=== PATIENT | male | born 1990 | race Caucasian/White ===

== ENCOUNTER → 2019-04-20 15:27 | Outpatient (CLI) | payer MEDICARE, MEDICAID, SELFPAY ==
[2019-04-20 17:23] LABS: BUN Creatinine Ratio 12.9 (6-22); Blood Urea Nitrogen 9 mg/dL (9-20); Estimated Glomerular Filt Rate > 60.0 mL/min (>60)
== END ==
PROVIDERS: PCP Internal Medicine
DX: I10 Essential (primary) hypertension (principal)
CPT/HCPCS: 36415; 82565; 84520

== ENCOUNTER → 2019-12-21 08:58 | Outpatient (CLI) | payer MEDICARE, MEDICAID, SELFPAY ==
[2019-12-24 10:18] LABS: Lamotrigine Lamictal 5.3 mcg/mL (4.0-18.0)
== END ==
PROVIDERS: PCP Internal Medicine; Referring Provider Psychiatry & Neurology Neurology; Visit Provider Psychiatry & Neurology Neurology
DX: G40.909 Epilepsy, unspecified, not intractable, without status epilepticus (principal)
CPT/HCPCS: 36415; 80175; 80183

== ENCOUNTER → 2020-01-18 10:54 | Outpatient (CLI) | payer MEDICARE, MEDICAID, SELFPAY ==
--- NOTE | 2020-01-18 10:59 | DI.MRI.S_ITS ---
PROCEDURE: MR HEAD/BRAIN WO/W CON INDICATIONS: Abnormal findings on diagnostic imaging of skull. 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 TECHNIQUE: Noncontrast axial T1 spin echo, axial T2 fast spin echo, sagittal and axial FLAIR, coronal T2 fast spin echo, axial gradient echo, axial diffusion and ADC through the brain. After the administration of contrast, axial and coronal 3D VIBE or T1 spin echo with fat saturation through the brain. COMPARISON: Outside Facility, RG, MRI HEAD W/WO CONTRAST, 05/01/2019, 10:30. Outside Facility, RG, MRI HEAD W/WO CONTRAST, 04/13/2017, 15:18. FINDINGS: Image quality: Excellent. CSF Spaces: Basal cisterns are patent. No extra-axial fluid collections. Ventricles are stable in size and shape with encephalomalacia asymmetrically enlarging the right lateral ventricle when compared to that on the left a mild degree, associated with prior treatment for astrocytoma resection right frontal brain parenchyma, near the frontoparietal junction. Brain: No midline shift. No new intracranial bleeds or new masses. The prior medial right thalamic area of cystic and solid mass is again seen, mildly distorting the ependymal border adjacent to the anterior margin of the third ventricle. The mass effect in this area has slowly enlarged over time, measuring 2.2 x 1.1 cm in maximal AP and transverse dimensions in April of last year and currently measures 3.0 x 1.6 cm. Minimal associated abnormal enhancement. The brainstem appears normal. Diffusion-weighted images demonstrate no acute ischemic insults. No chronic ischemic insults. Normal intravascular flow voids are present. Skull and face: Calvarial marrow is normal in signal. Orbits appear normal. Sinuses: Sinuses and mastoids appear clear. IMPRESSION: 1. Stable appearance of right frontoparietal junction postoperative encephalomalacia after resection of astrocytoma in that area. 2. Slow interval enlargement of a combined cystic and solid mass at the medial right thalamic border adjacent to the anterior border of the third ventricle, as detailed above. This shows a slight degree of contrast enhancement, as has been previously the case. No new lesion elsewhere is found. Dictated by: Pipo Dior M.D. on 01/18/2020 at 13:27 Approved by: Pipo Dior M.D. on 01/18/2020 at 13:44
== END ==
PROVIDERS: PCP Internal Medicine; Referring Provider Psychiatry & Neurology Neurology; Visit Provider Psychiatry & Neurology Neurology
DX: R93.0 Abnormal findings on diagnostic imaging of skull and head, not elsewhere classified (principal); G93.89 Other specified disorders of brain; Z85.841 Personal history of malignant neoplasm of brain
CPT/HCPCS: 70553; A9579

== ENCOUNTER → 2020-12-20 09:23 | Outpatient (CLI) | payer OTHER, MEDICAID, SELFPAY ==
[2020-12-23 14:39] LABS: Lamotrigine Lamictal 6.5 ug/mL (2.0-20.0)
[2020-12-26 13:59] LABS: Oxcarbazepin, Trileptal 8
== END ==
PROVIDERS: PCP Internal Medicine; Referring Provider Psychiatry & Neurology Neurology; Visit Provider Psychiatry & Neurology Neurology
DX: G40.201 Localization-related (focal) (partial) symptomatic epilepsy and epileptic syndromes with complex partial seizures, not intractable, with status epilepticus (principal)
CPT/HCPCS: 36415; 80175; 80183

== ENCOUNTER 2023-08-12 14:04 | Outpatient (RCR) | payer OTHER, MEDICAID, SELFPAY ==
--- NOTE | 2023-08-12 14:22 | PT.OPPOC ---
Physical, Occupational & Speech Therapy At [facility] Current Diagnoses Spastic hemiplegia affecting unspecified side (08/12/23) Other abnormalities of gait and mobility (08/12/23) Visit Care Team Role Provider Type Sunny Hyde MD Primary Care Provider Non-Staff Specialty: Internal Medicine Address: [address] [place] [address], [address], [place], [address] Email: Stephan Betts MD Attending Provider Non-Staff Referring Provider Specialty: Neurology Address: [address] [place], [address] Email: Plan Of Care PT-OP-T Assessment and Plan Start: 08/12/23 14:21 Freq: Status: Active Protocol: Document 08/12/23 14:22 AM (Rec: 08/12/23 15:16 AM [id number]) Physical Therapy Assessment Rehab Potential Rehabilitation Potential Fair Evaluation Complexity Number of Personal Factors/Comorbidities 3 or More Number of Body Systems Impaired 3 Clinical Presentation at Evaluation Stable Impairments Impairments Activity Tolerance,Balance, Coordination,Functional Activities,Functional Mobility ,Gait,Pain,Posture,ROM, Sensation,Soft Tissue Mobility ,Strength,Tone Assessment Summary Assessment Brant Bennett presented to PT and reported that he was not interested in pursuing PT at this time and did not feel that it was currently needed. Pt demonstrates L hemiplegia affecting UE and LE. Pt reports that he does stretches independently. PT educated pt on why an AFO might be helpful to help pt clear his foot during gait. Pt given information in handout regarding local automotive upholsterer/ prothetist. Pt agreeable to IE only at this time. Pt demonstrated minimal fall risk per Valentine balance score. Pt demonstrates difficulty with narrow EMETERIO activities. Pt demonstrates L foot drop and intoeing, which increases fall risk during gait. Pt given HEP to strength LE and to improve LE flexibility, particularly at L calf. Pt encouraged to pursue PT in the future if falls increase or balance/strength worsens. Physical Therapy Plan Frequency and Duration Frequency of Treatment Pt agreeable to IE Duration of treatment (weeks) 1 Plan of Care Start Date 08/12/23 Plan of Care End Date 08/13/23 Therapeutic Interventions Therapeutic Interventions Balance Training,Home Exercise Program,Neuromuscular Re- education,Patient/Caregiver Education,Self-Care/Home Management,Therapeutic Activities,Therapeutic Exercises Discharge Physical Therapy Discharge Reasons Patient Request Discharge Comments Pt agreeable to IE only. Pt reports that he has been in PT on/off throughout his whole life and does not feel that he needs it currently. Pt given information to obtain an AFO as he reports that tripping due to L foot is primary cause of falls. Pt also give HEP. Plan of Care Dates Plan of Care Start Date 08/12/23 Plan of Care End Date 08/13/23 Electronically Signed by: Ashely Davison, PT 08/12/23 9734 If you are in agreement with this Plan of Care, please return a signed and dated copy. I have reviewed this Plan of Care and certify that the skilled therapy services above are required to meet the patient?s needs. Physician Signature Date Printed Name and Credentials Clinical Instructor Signature Printed Name and Credentials
--- NOTE | 2023-08-12 14:22 | PT.OIE ---
Current Diagnoses Spastic hemiplegia affecting unspecified side (08/12/23) Other abnormalities of gait and mobility (08/12/23) Visit Care Team Role Provider Type Sunny Hyde MD Primary Care Provider Non-Staff Specialty: Internal Medicine Address: [address] [facility], [address], [place], [address] Email: Stephan Betts MD Attending Provider Non-Staff Referring Provider Specialty: Neurology Address: [address] [place] [address], [phone] Email: Physical Therapy Initial Evaluation PT-OP-A Visit Information Start: 08/12/23 14:21 Freq: Status: Active Protocol: Document 08/12/23 14:22 AM (Rec: 08/12/23 15:16 AM [id number]) Out-Patient Physical Therapy Visit Information Visit Information Visit Type Initial Evaluation Visit Start Time 14:22 Visit Stop Time 15:00 Total Visit Minutes 38 Visit Number 1 Evaluation Information Evaluation Date 08/12/23 Precautions Precautions Pt has seizures. He reports that they are kind of controlled. Pt reports that he does not get much warning. Pt reports that he had one 3 weeks ago. Pt is going to get vagus nerve stimulator. PT-OP-B Current Condition Start: 08/12/23 14:21 Freq: Status: Active Protocol: Document 08/12/23 14:22 AM (Rec: 08/12/23 15:16 AM [id number]) Current Condition History of Current Condition Onset Date 1 years old Current Complaints none History of Current Condition Pt reports that he had a brain tumor at 1.5 and 2 years old. He had that removed and chemo at that time. Pt reports that he has had PT on and off throughout the years and does not feel that he needs to be in PT currently. Pt is agreeable to IE today. Pt denies recent falls. Pt reports that when falls occur, it is because his L foot trips him. Prior Treatments and Tests Prior PT Current Functional Impairments (Reported) Functional Limitations- ADL's Independent Functional Limitations- Mobility/Gait Independent, no AD Functional Limitations- Other Pt unable to drive secondary to seizure activity. PT-OP-C Subjective Start: 08/12/23 14:21 Freq: Status: Active Protocol: Document 08/12/23 14:22 AM (Rec: 08/12/23 15:16 AM [id number]) OP-PT Pain Assessment Pain Assessment Grid Paper Pain Assessment Grid Completed Yes PT-OP-D Balance Start: 08/12/23 14:21 Freq: Status: Active Protocol: Document 08/12/23 14:22 AM (Rec: 08/12/23 15:16 AM [id number]) Valentine Balance Assessment Evaluation Sitting to Standing Ability Independent w/out Hands Unsupported Stance Safely- 2 minutes Sitting Unsupported, Feet on Floor Safely- 2 minutes Standing to Sitting Ability Safely, Minimal Hand Use Transfer Ability Safely, Minimal Hand Use Unsupported Stance- Eyes Closed Safely, 10 seconds Unsupported Stance- Eyes Open Independent, 1 minute Reaching Forward Standing Confidently, 10 inches Pick- Up Object From Floor Independent/Safe Look Behind Shoulder - Standing Shifts Weight Well Turning 360 Degrees Turns Bilateral, < 4 secs Unsupported Stance, Alternating Feet on (I)- 8 Steps in 20 secs Stair Unsupported Tandem Stance Assist to Step-15 seconds Unilateral Leg Stance Lifts Leg/Holds 10 secs Total Score Valentine Total Score (out of 56 points) 53 Valentine Impairment Rating 1 to 19% Impaired (Score 45-55 ) PT-OP-E Functional Tests Start: 08/12/23 14:21 Freq: Status: Active Protocol: Document 08/12/23 14:22 AM (Rec: 08/12/23 15:16 AM [id number]) Functional Tests 30 Second Sit to Stand Test Score 6 Comments Pt stopped at 6 secondary to fear of pain PT-OP-G Mobility & Gait Start: 08/12/23 14:21 Freq: Status: Active Protocol: Document 08/12/23 14:22 AM (Rec: 08/12/23 15:16 AM [id number]) OP Mobility Evaluation Bed Mobility Rolling Independent Supine to and from Sit Independent Transfers Sit to Stand Independent OP Gait Assessment Gait Gait Assistance Required: Independent Assistive Devices Assistive Device None Gait Deviations General Gait Pattern Decreased Stride Length, Decreased Feet Clearance Factors Limiting Gait Function Factors Limiting Gait Function Abnormal Tonal Influences, Decreased Sensation,Decreased Strength,Limited Range of Motion Comments Gait Comments Pt demonstrates L LE foot drop and IR. PT-OP-M Strength Start: 08/12/23 14:21 Freq: Status: Active Protocol: Document 08/12/23 14:22 AM (Rec: 08/12/23 15:16 AM [id number]) Hip Strength Hip Manual Muscle Testing Left Flexion (L2) 4- Good- Extension (S1) 4- Good- Abduction 4- Good- Right Flexion (L2) 5 Normal Abduction 5 Normal Adduction 5 Normal Knee Strength Knee Manual Muscle Testing Left Flexion (S2) 3+ Fair+ Extension (L3) 4- Good- Comments compensation at hip with knee extension Right Flexion (S2) 4 Good Extension (L3) 5 Normal Ankle/Foot Strength Ankle and Foot Manual Muscle Testing Left Dorsiflexion (L4) 3- Fair- Plantarflexion (S1) 3+ Fair+ Right Dorsiflexion (L4) 5 Normal Plantarflexion (S1) 5 Normal PT-OP-Q Treatments Start: 08/12/23 14:21 Freq: Status: Active Protocol: Document 08/12/23 14:22 AM (Rec: 08/12/23 17:57 AM [id number]) Therapeutic Exercises Sitting Exercises Long sitting calf stretch Side left Equipment Used towel Reps/Minutes x30 sec Hamstring stretch Side bilateral Reps/Minutes x30 sec ea LE Standing Exercises Chair squat Reps/Minutes x5 Comments cues for quality of motion not speed in HEP PT-OP-T Assessment and Plan Start: 08/12/23 14:21 Freq: Status: Active Protocol: Document 08/12/23 14:22 AM (Rec: 08/12/23 15:16 AM [id number]) Physical Therapy Assessment Rehab Potential Rehabilitation Potential Fair Evaluation Complexity Number of Personal Factors/Comorbidities 3 or More Number of Body Systems Impaired 3 Clinical Presentation at Evaluation Stable Impairments Impairments Activity Tolerance,Balance, Coordination,Functional Activities,Functional Mobility ,Gait,Pain,Posture,ROM, Sensation,Soft Tissue Mobility ,Strength,Tone Assessment Summary Assessment Brant Bennett presented to PT and reported that he was not interested in pursuing PT at this time and did not feel that it was currently needed. Pt demonstrates L hemiplegia affecting UE and LE. Pt reports that he does stretches independently. PT educated pt on why an AFO might be helpful to help pt clear his foot during gait. Pt given information in handout regarding local teletype operator/ prothetist. Pt agreeable to IE only at this time. Pt demonstrated minimal fall risk per Valentine balance score. Pt demonstrates difficulty with narrow EMETERIO activities. Pt demonstrates L foot drop and intoeing, which increases fall risk during gait. Pt given HEP to strength LE and to improve LE flexibility, particularly at L calf. Pt encouraged to pursue PT in the future if falls increase or balance/strength worsens. Physical Therapy Plan Frequency and Duration Frequency of Treatment Pt agreeable to IE Duration of treatment (weeks) 1 Plan of Care Start Date 08/12/23 Plan of Care End Date 08/13/23 Therapeutic Interventions Therapeutic Interventions Balance Training,Home Exercise Program,Neuromuscular Re- education,Patient/Caregiver Education,Self-Care/Home Management,Therapeutic Activities,Therapeutic Exercises Discharge Physical Therapy Discharge Reasons Patient Request Discharge Comments Pt agreeable to IE only. Pt reports that he has been in PT on/off throughout his whole life and does not feel that he needs it currently. Pt given information to obtain an AFO as he reports that tripping due to L foot is primary cause of falls. Pt also give HEP.
== END 2023-08-19 09:59 ==
LOC: PHYS 14:04
PROVIDERS: PCP Internal Medicine; Referring Provider Psychiatry & Neurology Neurology; Visit Provider Psychiatry & Neurology Neurology
DX: G81.10 Spastic hemiplegia affecting unspecified side (principal); R26.89 Other abnormalities of gait and mobility
CPT/HCPCS: 97110; 97162

== ENCOUNTER → 2023-12-02 08:54 | Outpatient (CLI) | payer OTHER, MEDICAID, SELFPAY ==
[2023-12-02 09:54] LABS: Add Manual Diff / Slide Review NO; Basophils Absolute Auto 100 /uL (0-100); Basophils Percent Auto 0.9 % (0-2); Eosinophils Absolute Auto 300 /uL (0-450); Eosinophils Percent Auto 2.9 % (2-4); Hematocrit 45.7 % (41-53); Hemoglobin 15.8 g/dL (13.5-17.5); Lymphocytes Absolute Auto 2300 /uL (1100-4500); Lymphocytes Percent Auto 23.9 % (25-40); Mean Corpuscular HGB Conc 34.7 % (30-36); Mean Corpuscular Hemoglobin 31.5 PG (26-34); Mean Corpuscular Volume 90.9 fL (80-100); Monocytes Absolute Auto 800 /uL (0-900); Monocytes Percent Auto 8.2 % (3-14); Neutrophils Absolute Auto 6100 /uL (1500-7000); Neutrophils Percent Auto 64.1 % (50-75); Platelet Count 259 X10^3/uL (150-400); Red Blood Cell Count 5.03 X10^6/uL (4.5-5.9); Red Cell Distribution Width 14.2 % (11.6-14.8); White Blood Cell Count 9.5 X10^3/uL (4.5-11.0)
[2023-12-02 10:23] LABS: Alanine Aminotransferase 35 IU/L (<50); Albumin 4.5 g/dL (3.5-5.0); Albumin Globulin Ratio 1.7 (1.0-2.8); Alkaline Phosphatase 60 U/L (38-126); Aspartate Aminotransferase 32 IU/L (17-59); BUN Creatinine Ratio 10.4 (6-22); Bilirubin Total 0.7 mg/dL (0.2-1.3); Blood Urea Nitrogen 7 mg/dL (9-20); Calcium 9.3 mg/dL (8.4-10.2); Carbon Dioxide 24 mmol/L (22-32); Chloride 97 mmol/L (98-107); Estimated Glomerular Filt Rate > 60 mL/min (>60); Globulin 2.7 g/dL (1.7-4.1); Glucose 97 mg/dL (70-100); HEMOLYSIS < 15 (0-50); Potassium 4.9 mmol/L (3.4-5.1); Sodium 129 mmol/L (137-145); Total Protein 7.2 g/dL (6.3-8.2)
[2023-12-06 14:36] LABS: Lamotrigine Lamictal 7.3 ug/mL (2.0-20.0)
[2023-12-07 03:46] LABS: Oxcarbazepin, Trileptal 17 ug/mL (10-35)
== END ==
PROVIDERS: PCP Internal Medicine; Referring Provider Psychiatry & Neurology Neurology; Visit Provider Psychiatry & Neurology Neurology
DX: Z51.81 Encounter for therapeutic drug level monitoring (principal); G40.201 Localization-related (focal) (partial) symptomatic epilepsy and epileptic syndromes with complex partial seizures, not intractable, with status epilepticus
CPT/HCPCS: 36415; 80053; 80175; 80183; 85025

== ENCOUNTER → 2024-04-26 08:48 | Outpatient (CLI) | payer MEDICARE, MEDICAID, SELFPAY ==
[2024-04-26 09:37] LABS: Add Manual Diff / Slide Review NO; Basophils Absolute Auto 100 /uL (0-100); Basophils Percent Auto 0.9 % (0-2); Eosinophils Absolute Auto 200 /uL (0-450); Eosinophils Percent Auto 2.2 % (2-4); Hematocrit 46.7 % (41-53); Hemoglobin 16.3 g/dL (13.5-17.5); Lymphocytes Absolute Auto 2200 /uL (1100-4500); Lymphocytes Percent Auto 28.6 % (25-40); Mean Corpuscular Hemoglobin 31.7 PG (26-34); Mean Corpuscular Volume 90.7 fL (80-100); Monocytes Absolute Auto 600 /uL (0-900); Monocytes Percent Auto 8.2 % (3-14); Neutrophils Absolute Auto 4500 /uL (1500-7000); Neutrophils Percent Auto 60.1 % (50-75); Platelet Count 251 X10^3/uL (150-400); Red Blood Cell Count 5.15 X10^6/uL (4.5-5.9); White Blood Cell Count 7.6 X10^3/uL (4.5-11.0)
[2024-04-26 09:41] LABS: Alanine Aminotransferase 21 IU/L (<50); Albumin 4.7 g/dL (3.5-5.0); Albumin Globulin Ratio 1.7 (1.0-2.8); Alkaline Phosphatase 72 U/L (38-126); Aspartate Aminotransferase 24 IU/L (17-59); BUN Creatinine Ratio 11.5 (6-22); Bilirubin Total 0.5 mg/dL (0.2-1.3); Blood Urea Nitrogen 7 mg/dL (9-20); Calcium 9.1 mg/dL (8.4-10.2); Carbon Dioxide 27 mmol/L (22-32); Chloride 97 mmol/L (98-107); Estimated Glomerular Filt Rate > 60 mL/min (>60); Globulin 2.7 g/dL (1.7-4.1); Glucose 98 mg/dL (70-100); HEMOLYSIS < 15 (0-50); Potassium 4.6 mmol/L (3.4-5.1); Sodium 131 mmol/L (137-145); Total Protein 7.4 g/dL (6.3-8.2)
[2024-04-28 14:36] LABS: Lamotrigine Lamictal 6.2 ug/mL (2.0-20.0)
== END ==
PROVIDERS: Referring Provider Psychiatry & Neurology Neurology; Visit Provider Psychiatry & Neurology Neurology
DX: Z51.81 Encounter for therapeutic drug level monitoring (principal)
CPT/HCPCS: 36415; 80053; 80175; 80183; 85025

== ENCOUNTER → 2024-08-17 09:16 | Outpatient (CLI) | payer OTHER, MEDICAID, SELFPAY | LOC: LAB 09:20 | PROVIDERS: PCP Internal Medicine; Referring Provider Psychiatry & Neurology Neurology; Visit Provider Psychiatry & Neurology Neurology | DX: G40.109 Localization-related (focal) (partial) symptomatic epilepsy and epileptic syndromes with simple partial seizures, not intractable, without status epilepticus (principal) | CPT/HCPCS: 36415; 80175; 80183 ==

== ENCOUNTER → 2024-09-26 07:17 | Outpatient (CLI) | payer OTHER, MEDICAID, SELFPAY ==
[2024-09-28 13:17] LABS: Lamotrigine Lamictal 7.7 ug/mL (2.0-20.0)
[2024-10-01 15:08] LABS: Oxcarbazepin, Trileptal 17 ug/mL (10-35)
== END ==
PROVIDERS: PCP Internal Medicine; Referring Provider Psychiatry & Neurology Neurology; Visit Provider Psychiatry & Neurology Neurology
DX: G40.109 Localization-related (focal) (partial) symptomatic epilepsy and epileptic syndromes with simple partial seizures, not intractable, without status epilepticus (principal)
CPT/HCPCS: 80175; 80183; 80299

== ENCOUNTER → 2024-12-15 12:26 | Outpatient (CLI) | payer MEDICARE, MEDICAID, SELFPAY ==
[2024-12-15 13:13] LABS: Add Manual Diff / Slide Review NO; Basophils Absolute Auto 100 /uL (0-100); Basophils Percent Auto 1.5 % (0-2); Eosinophils Absolute Auto 100 /uL (0-450); Eosinophils Percent Auto 1.9 % (2-4); Hematocrit 41.6 % (41-53); Hemoglobin 14.4 g/dL (13.5-17.5); Lymphocytes Absolute Auto 1900 /uL (1100-4500); Lymphocytes Percent Auto 24.7 % (25-40); Mean Corpuscular HGB Conc 34.7 % (30-36); Mean Corpuscular Hemoglobin 31.9 PG (26-34); Mean Corpuscular Volume 91.9 fL (80-100); Monocytes Absolute Auto 600 /uL (0-900); Monocytes Percent Auto 7.9 % (3-14); Neutrophils Absolute Auto 4900 /uL (1500-7000); Platelet Count 233 X10^3/uL (150-400); Red Blood Cell Count 4.52 X10^6/uL (4.5-5.9); Red Cell Distribution Width 13.5 % (11.6-14.8); White Blood Cell Count 7.7 X10^3/uL (4.5-11.0)
[2024-12-15 13:31] LABS: Alanine Aminotransferase 21 IU/L (<50); Albumin 4.3 g/dL (3.5-5.0); Alkaline Phosphatase 50 U/L (38-126); Aspartate Aminotransferase 25 IU/L (17-59); Bilirubin Total 0.4 mg/dL (0.2-1.3); Calcium 9.1 mg/dL (8.4-10.2); Carbon Dioxide 29 mmol/L (22-32); Chloride 91 mmol/L (98-107); Estimated Glomerular Filt Rate > 60 mL/min (>60); Globulin 2.1 g/dL (1.7-4.1); Glucose 68 mg/dL (70-100); HEMOLYSIS < 15 (0-50); Potassium 3.9 mmol/L (3.4-5.1); Sodium 128 mmol/L (137-145); Total Protein 6.4 g/dL (6.3-8.2)
[2024-12-15 13:34] LABS: BUN Creatinine Ratio 3.5 (6-22); Blood Urea Nitrogen 2 mg/dL (9-20)
== END ==
PROVIDERS: PCP Internal Medicine; Referring Provider Psychiatry & Neurology Neurology; Visit Provider Psychiatry & Neurology Neurology
DX: Z51.81 Encounter for therapeutic drug level monitoring (principal); G40.109 Localization-related (focal) (partial) symptomatic epilepsy and epileptic syndromes with simple partial seizures, not intractable, without status epilepticus
CPT/HCPCS: 36415; 80053; 85025

== ENCOUNTER → 2024-12-16 08:12 | Outpatient (CLI) | payer MEDICARE, MEDICAID, SELFPAY ==
[2024-12-19 11:09] LABS: Lamotrigine Lamictal 6.9 ug/mL (2.0-20.0)
== END ==
LOC: LAB 08:17
PROVIDERS: PCP Psychiatry & Neurology Neurology; Referring Provider Psychiatry & Neurology Neurology; Visit Provider Psychiatry & Neurology Neurology
DX: G40.109 Localization-related (focal) (partial) symptomatic epilepsy and epileptic syndromes with simple partial seizures, not intractable, without status epilepticus (principal)
CPT/HCPCS: 36415; 80175; 80183

== ENCOUNTER → 2025-03-23 07:04 | Outpatient (CLI) | payer OTHER, MEDICAID, SELFPAY ==
[2025-03-23 07:28] LABS: Add Manual Diff / Slide Review NO; Basophils Absolute Auto 100 /uL (0-100); Eosinophils Absolute Auto 200 /uL (0-450); Eosinophils Percent Auto 3.3 % (2-4); Hematocrit 46.5 % (41-53); Hemoglobin 16.3 g/dL (13.5-17.5); Lymphocytes Absolute Auto 1400 /uL (1100-4500); Lymphocytes Percent Auto 21.7 % (25-40); Mean Corpuscular Hemoglobin 32.4 PG (26-34); Mean Corpuscular Volume 92.5 fL (80-100); Monocytes Absolute Auto 800 /uL (0-900); Monocytes Percent Auto 11.5 % (3-14); Neutrophils Absolute Auto 4200 /uL (1500-7000); Neutrophils Percent Auto 62.5 % (50-75); Platelet Count 236 X10^3/uL (150-400); Red Blood Cell Count 5.03 X10^6/uL (4.5-5.9); Red Cell Distribution Width 13.5 % (11.6-14.8); White Blood Cell Count 6.6 X10^3/uL (4.5-11.0)
[2025-03-23 07:48] LABS: Alanine Aminotransferase 22 IU/L (<50); Albumin 4.6 g/dL (3.5-5.0); Albumin Globulin Ratio 2.1 (1.0-2.8); Alkaline Phosphatase 62 U/L (38-126); Aspartate Aminotransferase 26 IU/L (17-59); BUN Creatinine Ratio 15.2 (6-22); Bilirubin Total 0.6 mg/dL (0.2-1.3); Blood Urea Nitrogen 10 mg/dL (9-20); Calcium 9.5 mg/dL (8.4-10.2); Carbon Dioxide 27 mmol/L (22-32); Chloride 102 mmol/L (98-107); Estimated Glomerular Filt Rate > 60 mL/min (>60); Globulin 2.2 g/dL (1.7-4.1); Glucose 98 mg/dL (70-99); HEMOLYSIS < 15 (0-50); Potassium 4.1 mmol/L (3.4-5.1); Sodium 136 mmol/L (137-145); Total Protein 6.8 g/dL (6.3-8.2)
[2025-03-26 09:09] LABS: Lamotrigine Lamictal 6.1 ug/mL (2.0-20.0)
[2025-03-27 15:40] LABS: Oxcarbazepin, Trileptal 17 ug/mL (10-35)
== END ==
PROVIDERS: Referring Provider Psychiatry & Neurology Neurology; Visit Provider Psychiatry & Neurology Neurology
DX: Z51.81 Encounter for therapeutic drug level monitoring (principal); G40.109 Localization-related (focal) (partial) symptomatic epilepsy and epileptic syndromes with simple partial seizures, not intractable, without status epilepticus
CPT/HCPCS: 36415; 80053; 80175; 80183; 85025

== ENCOUNTER 2025-03-23 10:01 | Emergency (ER) | payer OTHER, MEDICAID, SELFPAY ==
[2025-03-23 10:14] VITALS: BP 133/64; PULSE 75; RESP 18; TEMP 36.6; O2SAT 99; BMI 29.5
--- NOTE | 2025-03-23 10:20 | DI.RAD.S_ITS ---
PROCEDURE: XR HAND RT MIN 3V INDICATIONS: punched a counter pain TECHNIQUE: 3 views of the hand(s) acquired. COMPARISON: None. FINDINGS: Bones: No fractures or dislocations. Carpal bones are normally aligned. No suspicious bony lesions. Soft tissues: No suspicious soft tissue calcifications. IMPRESSION: No acute bony abnormality. Dictated by: Clarence Beltran M.D. on 03/23/2025 at 12:14 Approved by: Clarence Beltran M.D. on 03/23/2025 at 12:15
--- NOTE | 2025-03-25 16:05 | ED.UPPEXIN ---
HPI - Extremity Injury (Upper) General Chief Complaint: Extremity Injury, Upper Stated Complaint: RT hand; may have broken 3 fingers Mode of arrival: Family Vehicle Related Data Home Medications Medication Instructions Recorded Confirmed metoprolol succinate 100 mg 100 mg PO QDAY ##0 03/11/17 03/20/25 tablet,extended release 24 hr (Toprol XL) cenobamate 200 mg tablet (Xcopri) mg PO 03/20/25 03/20/25 haloperidol 5 mg tablet mg PO 03/20/25 03/20/25 lamotrigine 200 mg tablet 250 mg PO BID #0 tabs 03/20/25 03/20/25 (Lamictal) memantine 10 mg tablet 10 mg PO BID 03/20/25 03/20/25 oxcarbazepine 300 mg tablet mg PO 03/20/25 03/20/25 Previous Rx's Medication Instructions Recorded famotidine 40 mg tablet 40 mg PO DAILY #30 tabs 03/20/25 Allergies Allergy/AdvReac Type Severity Reaction Status Date / Time Penicillins [PENICILLINS] Allergy Unknown Verified 03/23/25 10:18 Sulfa (Sulfonamide Allergy Unknown Verified 03/23/25 10:18 Antibiotics) [SULFA (SULFONAMIDE ANTIBIOTICS)] Patient History Social History Smoking Status: Current every day smoker Smoking Status: Current every day smoker tobacco type: cigarettes Exam Initial Vital Signs Initial Vital Signs: Vital Signs Temperature 97.8 F 03/23/25 10:14 Pulse Rate 75 03/23/25 10:14 Respiratory Rate 18 03/23/25 10:14 Blood Pressure 133/64 03/23/25 10:14 Pulse Oximetry 99 03/23/25 10:14 Oxygen Delivery Method Room Air 03/23/25 10:14 MDM - Extremity Injury (Upper) MDM Narrative Medical decision making narrative: Patient left without being seen Discharge Plan Departure Patient Disposition: Left Without Being Seen Clinical Impression: Patient left before evaluation by physician Prescriptions: No Action Xcopri 200 mg tablet PO memantine 10 mg tablet 10 mg PO BID haloperidol 5 mg tablet PO oxcarbazepine 300 mg tablet PO famotidine 40 mg tablet 40 mg PO DAILY Qty: 30 0RF metoprolol succinate [Toprol XL] 100 MG tablet extended release 24 hr 100 mg PO QDAY Qty: 0 lamotrigine [Lamictal] 200 mg tablet 250 mg PO BID Qty: 0
== END 2025-03-23 13:40 | disposition left against medical advice (07) ==
PROVIDERS: Emergency Provider Student in an Organized Health Care Education/Training Program
DX: S69.91XA Unspecified injury of right wrist, hand and finger(s), initial encounter (principal); Z51.81 Encounter for therapeutic drug level monitoring; G40.109 Localization-related (focal) (partial) symptomatic epilepsy and epileptic syndromes with simple partial seizures, not intractable, without status epilepticus
CPT/HCPCS: 36415; 73130; 80053; 80175; 80183; 85025; 99281